=== PATIENT | male | born 1960 | race Caucasian/White ===

== ENCOUNTER 2018-08-06 18:36 | Emergency (ER) | payer BC, OTHER ==
[~2018-08-06] VITALS: Ht 182.9 cm; Wt 104.1 kg
[2018-08-06] MEDS ORDERED: PHENYLEPHRINE NASAL 1%, 15ML SPRAY ONE (18:42)
[2018-08-06] MEDS ORDERED: PHENYLEPHRINE 10 MG/ML ONE (18:42)
[2018-08-06] MEDS ORDERED: OXYMETAZOLINE NASAL SPRAY 0.05%, 15ML NAS ONE (19:00)
[2018-08-06] MEDS ORDERED: LIDOCAINE 1%-EPI 1:100K, 20ML SQ ONE (19:00)
[2018-08-06] MEDS ORDERED: LIDOCAINE 1%-EPI 1:100K, 20ML ONE (19:01)
[2018-08-06] MEDS ORDERED: OXYMETAZOLINE NASAL SPRAY 0.05%, 15ML ONE (19:02)
--- NOTE | 2018-08-06 19:11 | NUR ---
PA PERFORMING EPISTAXIS PROCEDURE AT THIS TIME. EKG TO FOLLOW.
[2018-08-06 19:20] LABS: BASOPHILS # (AUTO) 0.08 x10^3/uL (0-0.1); BASOPHILS % (AUTO) 1 % (0-1); EOSINOPHILS % (AUTO) 1 % (1-7); LYMPHOCYTES # (AUTO) 2.01 x10^3/uL (1-3.4); LYMPHOCYTES % (AUTO) 27 % (22-44); MD NO; MEAN CORPUSCULAR HEMOGLOBIN 32.9 pg (27.5-34.5); MEAN CORPUSCULAR HGB CONC 34.8 g/dL (33.2-36.2); MEAN CORPUSCULAR VOLUME 94.7 fL (81-97); MEAN PLATELET VOLUME 8.4 fL (7.4-10.4); MONOCYTES % (AUTO) 8 % (2-9); NEUTROPHILS # (AUTO) 4.54 x10^3/uL (1.8-6.8); NEUTROPHILS % (AUTO) 62 % (42-75); PLATELET COUNT 226 x10^3/uL (130-400); RED BLOOD COUNT 5.26 x10^6/uL (4.38-5.82); RED CELL DISTRIBUTION WIDTH 13.6 % (9.4-14.8)
[2018-08-06 19:29] LABS: ALBUMIN 4.6 g/dL (3.4-5.0); ANION GAP 7 mmol/L (5-15); CALCIUM 8.6 mg/dL (8.5-10.1); CHLORIDE 107 mmol/L (98-107); CREATININE 1.05 mg/dL (0.7-1.3)
[2018-08-06] MEDS ORDERED: SILVER NITRATE STICK TP ONE ×2 (19:30→19:45)
--- NOTE | 2018-08-06 19:30 | NUR ---
L NARE EPISTAXIS ONSET ~ 173 TODAY; DENIES INJURY OR BLOOD THINNERS, PT STATES NO CHANGES, STILL BLEEDING, PA AWARE AND AT CHAIR SIDE
--- NOTE | 2018-08-06 20:11 | NUR ---
PT MEDICATED ORDERED. PA TO BEDSIDE
[2018-08-06 20:17] LABS: INTERNATIONAL NORMALIZED RATIO 1.02 (0.93-1.1); PROTHROMBIN TIME 10.7 Seconds (9.6-11.5)
[2018-08-06 21:33] VITALS: BP 120/83
--- NOTE | 2018-08-06 21:33 | NUR ---
Patient/Caregiver given discharge instructions and they have confirmed that they understand the instructions. Patient ambulatory with steady gait.
== END 2018-08-06 21:36 | disposition home or self-care (01) ==
LOC: ED 21:20
DX: R04.0 Epistaxis (principal); I10 Essential (primary) hypertension
CPT/HCPCS: 30901; 36415; 71045; 80048; 82040; 85025; 85610; 93005; 99284